=== PATIENT | female | born 1975 | race Caucasian/White ===

== ENCOUNTER 2023-11-25 23:19 | Emergency (ER) | payer OTHER, SELFPAY ==
[2023-11-25 23:20] VITALS: BP 130/75; BMI 24.8
--- NOTE | 2023-11-25 23:39 | ED.GENMED ---
History of Present Illness
General
Chief Complaint: Headache
Time Seen by Provider: 11/25/23 23:25
History of Present Illness
History of Present Illness:
Pt is a 48 y/o F presenting for evaluation of left-sided temporal CAST. She notes that she first became symptomatic while on the second of two flights earlier today. EMS was called while pt was at a [employer]. She endorses associated photophobia,
dizziness, and slurring of speech during this time. Speech is now normal. She denies difficulty ambulating as well as extremity numbness/tingling. Pt has not taken any medication for her sx. Of note, pt has a PMH of migraines and brain aneurysm.
GOLDY Smith
Past History
Past History
ED Past Medical History: Asthma, HTN, Hypercholesterolemia, Psychiatric (Anxiety), Other (Eclampsia, left internal carotid artery aneurysm, brain aneurysm) and Other (Chronic pain syndrome, narcotic dependent, chronic daily headaches)
ED Past Surgical History: Gynecological and Other (Aneurysm coiling)
Social History
Tobacco: Smoker
Alcohol: None
Drug: None
Personal: Single
Living: with family
Employment: Disabled
Family History
Family History: Asthma; Negative Early CAD
Review of Systems
Review of Systems
Constitutional: Reports no symptoms
EENT: Reports no symptoms
Respiratory: Reports no symptoms
Cardiac: Reports no symptoms
ABD/GI: Reports no symptoms
: Reports no symptoms
Musculoskeletal: Reports no symptoms
Skin: Reports no symptoms
Neurological: Reports dizzy and headache
Endocrine: Reports no symptoms
Hematologic/Lymphatic: Reports no symptoms
Psychiatric: Reports no symptoms
Phy Exam
General Physical Exam
General Presentation: well appearing
General age: appears stated age
General Skin: warm
General Habitus: normal
General Mental: alert
General Hydration: appears well hydrated
Eye Exam
Eye Exam: PERRL
Cardiovascular Exam
Cardiovascular Exam: regular rate/rhythm, no edema and no murmur
Pulmonary Exam
Pulmonary Exam: lungs clear and no respiratory distress
Neurological Exam
Neurological Exam: alert, oriented x3, no motor deficits, normal reflexs and speech normal
Course
Orders/Labs/Results
Orders:
Orders
11/25/23 23:38
Cardiac Monitoring- Treatment ONCE
0.9% Sodium Chloride 500 ml [Nss] 500 ml IV BOLUS
11/25/23 23:39
Electrocardiogram (*1) Stat
Reason for Study: Other
Other Reason for Exam: neuro symptoms
EKG- Treatment ONCE
11/25/23 23:42
Test Result ONCE
11/25/23 23:53
Complete Blood Count/With Diff Urgent
Comprehensive Metabolic Panel Urgent
Erythrocyte Sed Rate Urgent
HCG, Serum Qualitative Screen Urgent
PTT Urgent
Prothrombin Time Urgent
11/26/23 00:15
CT Head & Neck Angio W/wo IV Urgent
Reason For Exam: Hx of aneurysm returns with same sx
11/26/23 01:16
Dexamethasone Sod Phosphate [Decadron] 10 mg IV NOW STA
Diphenhydramine [Benadryl] 25 mg IV NOW STA
Ketorolac [Toradol] 30 mg IV NOW STA
Metoclopramide [Reglan] 10 mg IV NOW STA
11/26/23 01:17
0.9% Sodium Chloride 1000 ml [Nss] 1,000 ml IV BOLUS
Abnormal Lab Results
11/25/23
23:53
RBC 4.11 L 10^6/uL
(4.20-5.40)
Hct 35.2 L %
(37.0-47.0)
Absolute Neuts (auto) 8.7 H 10^3/uL
(1.4-6.5)
Neutrophils % 81.7 H %
(42.2-75.2)
Lymphocytes % 12.8 L %
(20.5-51.1)
ESR 21 H mm/hour
(0-20)
APTT 23.2 L Sec
(23.4-35.0)
Glucose 113 H mg/dl
(70-99)
AST 63 H U/L
(14-36)
ALT 120 H U/L
(0-35)
11/25/23 23:53
11/25/23 23:53
Vital Signs
Initial and Last Documented VS:
Initial Vital Signs
Temp Pulse Resp BP Pulse Ox
97.8 F 90 18 130/75 97
11/25/23 23:20 11/25/23 23:20 11/25/23 23:20 11/25/23 23:20 11/25/23 23:20
Last Documented Vital Signs
Temp Pulse Resp BP Pulse Ox
97.8 F 89 18 130/75 97
11/25/23 23:20 11/26/23 02:45 11/26/23 02:45 11/25/23 23:20 11/26/23 01:00
MDM/Problems Addressed
Differential Diagnosis Includes:
migraine, ruptured intracranial aneurysm, CVA, temporal arteritis.
MDM/Problems Addressed:
Head and neck CTA. No intracranial hemorrhage, herniation, or hydrocephalus noted.
*Critical Care Note
Total Time (30-74mins, 75-104mins- exclusive of procedures): Not Applicable
Update Note
Update Note:
IMPRESSION:
HEAD:
No intracranial hemorrhage, herniation, or hydrocephalus. Left parietal encephalomalacia. Aneurysm coil in region of the left carotid terminus.
No calvarial fracture.
CTA HEAD:
Streak artifact from aneurysm coil limits evaluation.
No large vessel occlusion or critical stenosis within the anterior or posterior circulation. Left vertebral artery terminates in PICA, normal variant. 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
CTA NECK:
No large vessel occlusion or critical stenosis within the anterior or posterior circulation.
Case finalized on Nov 26 2023 12:59AM ET
11/26/2023 0208 AM: Patient sleeping at this point. Vital signs are stable. Will continue to observe in the ER
\\
11/26/2023 0359 AM: Patient resting comfortably. She states she has absolutely no headache. Symptoms have resolved. Wishes to be discharged.
ED Attending Note
-
Portions of this chart may have been created with voice recognition software.� Occasional wrong word or��sound alike� substitutions may have occurred due to the inherent limitations of voice recognition software.
Discharge Plan
Departure
Patient Disposition: Home (Routine Discharge)
Date of Disposition: 11/26/23
Time of Disposition: 04:00
Patient with high blood pressure during this ER visit?: No
Condition: Good
Discharge Problem:
Headache
Instructions: Headache, Adult (DC), BLOOD PRESSURE
Prescriptions:
No Action
lorazepam 1 MG tablet
1 mg PO Q8HPRN PRN (Reason: anxiety) Qty: 15 0RF
Referrals:
Axel Malagon MD [Active] - Call in 1-3 days for appt
UNKNOWN - PT DOES,NOT KNOW [Unknown Provider] -
Activity Restrictions/Additional Instructions:
It was a pleasure meeting you and taking part in your care. We hope for your continued healing and wellness.
Please read discharge instructions in their entirety. However, they are for general education and may not describe your exact diagnosis at discharge. Information on your ER visit and medical conditions were discussed with you along with appropriate
follow up information...
If indicated, please take your medications as instructed and indicated on discharge paperwork.
Please schedule a follow up appointment as directed. Call to schedule an appointment
Please return to the emergency department with ANY change in, persisting, or worsening of symptoms. If any of your symptoms do not improve, or persist, or become more severe within 6-12 hours, please return to the emergency department for further
care.
Please return to the emergency department if you develop a headache, neck pain/stiffness, fever greater than 100.4F, chest pain, shortness of breath, persistent nausea, vomiting, slurred speech, difficulty walking, numbness/tingling, weakness, signs
of infection or any other symptoms that are worrisome to you.
If you have any questions or concerns please do not hesitate to call the Hospital at or E-mail me directly at [email or web address]
Interventions
Interventions:
*Risk Screen - Suicide Last Done: 11/25/23 23:20
*General Assessment Last Done: 11/25/23 23:20
*Neglect/Abuse Screening Last Done: 11/25/23 23:20
ED- Neurological Assessment Last Done: 11/25/23 23:32
Discharge Date and Time
Print Language: BENGALI
[2023-11-25 23:58] LABS: % Basophils 0.4 % (0-2); % Eosinophils 0.6 % (0-6); % Immature Granulocytes 0.3 % (0-0.5); % Lymphocytes 12.8 % (20.5-51.1); % Monocytes 4.2 % (1.7-9.3); % Neutrophils 81.7 % (42.2-75.2); Absolute Eosinophils 0.1 10^3/uL (0-0.7); Absolute Lymphocytes 1.4 10^3/uL (1.2-3.4); Absolute Monocytes 0.4 10^3/uL (0.1-0.6); Absolute Neutrophils 8.7 10^3/uL (1.4-6.5); Hematocrit 35.2 % (37.0-47.0); Hemoglobin 12.5 g/dL (12.0-16.0); Mean Corp Hgb Conc. 35.5 g/dL (33.0-37.0); Mean Corpuscular Hgb 30.4 pg (27.0-31.0); Mean Corpuscular Volume 85.6 fL (81.0-99.0); Mean Platelet Volume 9.1 fL (7.4-10.4); Nucleated Red Blood Cells % 0 %; Platelet Count 270 10^3/uL (130-400); Red Blood Cell Count 4.11 10^6/uL (4.20-5.40); Red Cell Dist. Width 12.8 % (11.5-14.5); White Blood Cell Count 10.6 10^3/uL (4.8-10.8)
[2023-11-26] MEDS: NSS 500 IV (00:03)
[2023-11-26 00:08] LABS: HCG, Serum Qualitative Screen Negative
[2023-11-26 00:18] LABS: APTT 23.2 Sec (23.4-35.0); INR 1.03; PT 13.3 Sec (11.4-14.6)
[2023-11-26 00:19] LABS: ALT (SGPT) 120 U/L (0-35); AST (SGOT) 63 U/L (14-36); Albumin 4.9 g/dl (3.5-5.0); Alkaline Phosphatase 107 U/L (38-126); Blood Urea Nitrogen 16 mg/dl (7-17); Carbon Dioxide 22 mmol/L (22-30); Chloride 106 mmol/L (98-107); Estimated Creatinine Clearance 101 ml/min; Glucose 113 mg/dl (70-99); Potassium 4.2 mmol/L (3.5-5.1); Sodium 139 mmol/L (135-145); Total Bilirubin 0.7 mg/dl (0.2-1.3); eGFR > 60.00
[2023-11-26 00:23] LABS: Erythrocyte Sed Rate 21 mm/hour (0-20)
[2023-11-26] MEDS: BENADRYL 25 MG IV (01:27)
[2023-11-26] MEDS: TORADOL 30 MG IV (01:29)
[2023-11-26] MEDS: REGLAN 10 MG IV (01:32)
[2023-11-26] MEDS: DECADRON 10 MG IV (01:34)
[2023-11-26] MEDS: NSS 1000 IV (03:03)
[2023-11-26 05:30] VITALS: BP 108/56
== END 2023-11-26 05:35 | disposition home or self-care (01) ==
LOC: EMR 23:19
PROVIDERS: EMERGENCY PHYSICIAN Student in an Organized Health Care Education/Training Program
DX: R51.9 Headache, unspecified (principal); R42 Dizziness and giddiness; H53.149 Visual discomfort, unspecified; R47.81 Slurred speech; F41.9 Anxiety disorder, unspecified; I10 Essential (primary) hypertension; E78.00 Pure hypercholesterolemia, unspecified; F17.200 Nicotine dependence, unspecified, uncomplicated; Z88.2 Allergy status to sulfonamides
CPT/HCPCS: 99285; 96374; 96375 ×3; 96361 ×2; 70496; 70498; 80053; 84703; 85025; 85610; 85652; 85730; 93005; Q9967

== ENCOUNTER 2024-10-14 02:42 | Emergency (ER) | payer OTHER, SELFPAY ==
[2024-10-14 02:50] VITALS: BMI 32.8
[2024-10-14 02:55] VITALS: BP 133/83
[2024-10-14 03:08] LABS: % Basophils 0.4 % (0-2); % Eosinophils 0.5 % (0-6); % Immature Granulocytes 0.3 % (0-0.5); % Lymphocytes 16.7 % (20.5-51.1); % Monocytes 8.2 % (1.7-9.3); % Neutrophils 73.9 % (42.2-75.2); Absolute Eosinophils 0.1 10^3/uL (0-0.7); Absolute Lymphocytes 1.8 10^3/uL (1.2-3.4); Absolute Monocytes 0.9 10^3/uL (0.1-0.6); Absolute Neutrophils 8.1 10^3/uL (1.4-6.5); Hematocrit 37.2 % (37.0-47.0); Hemoglobin 13.2 g/dL (12.0-16.0); Mean Corp Hgb Conc. 35.5 g/dL (33.0-37.0); Mean Corpuscular Hgb 30.5 pg (27.0-31.0); Mean Corpuscular Volume 85.9 fL (81.0-99.0); Nucleated Red Blood Cells % 0 %; Platelet Count 327 10^3/uL (130-400); Red Blood Cell Count 4.33 10^6/uL (4.20-5.40); Red Cell Dist. Width 11.9 % (11.5-14.5); White Blood Cell Count 10.9 10^3/uL (4.8-10.8)
[2024-10-14 03:13] LABS: Amphetamines Negative (Negative); Barbiturates Negative (Negative); Benzodiazepines Negative (Negative); Buprenorphine Negative (Negative); Cocaine Negative (Negative); HCG, Urine Qualitative Screen Negative; Methadone Negative (Negative); Methamphetamines Negative (Negative); Opiates Negative (Negative); Urine Albumin 1+ (Neg - Trace); Urine Bilirubin Negative (Negative); Urine Character Slightly Cloudy (Clear); Urine Color Amber; Urine Glucose Negative (Negative); Urine Ketone 1+ (Negative); Urine Leukocyte Negative (Negative); Urine Nitrite Negative (Negative); Urine Occult Blood Negative (Negative); Urine Urobilinogen Negative (Neg - 1+)
[2024-10-14 03:14] LABS: Marijuana Positive (Negative); Phencyclidine Negative (Negative); Tricyclic Antidepressants Negative (Negative)
[2024-10-14] MEDS: ATIVAN 1 MG IV (03:15)
[2024-10-14] MEDS: SAPHRIS 10 MG SL (03:15)
[2024-10-14] MEDS: ZOFRAN 4 MG IV (03:16)
[2024-10-14 03:24] LABS: Urine Squamous Cell >30 /LPF (Few)
[2024-10-14 03:26] LABS: Urine Bacteria Few (Negative)
[2024-10-14 03:27] LABS: Urine Red Blood Cell None Seen /HPF (0-2); Urine White Cell None Seen /HPF (0-5)
--- NOTE | 2024-10-14 03:30 | ED.GENMED ---
History of Present Illness
<DO Sammy Luke Last Filed: 10/14/24 06:17>
General
Chief Complaint: Psychiatric Problem
Source: patient and ambulance crew
Exam Limitations: clinical condition
Time Seen by Provider: 10/14/24 02:56
History of Present Illness
History of Present Illness:
49-year-old female who presents by medics. Medics state that 9 1 was called while she was at [employer] saying that she overdosed. EMS reports that upon arrival she had complained that she was just nauseous. Reportedly her spouse had filed a
missing persons report. The patient states she is homeless. Patient states that she has been having nausea and vomiting intermittently over a few days. The patient also states that she has missed some of her medications because they are at a
family member's house. The patient is intermittently screaming and agitated. History taking is somewhat limited due to patient's inconsistency with her history.
Past History
<DO Sammy Luke Last Filed: 10/14/24 06:17>
Past History
ED Past Medical History: Asthma, HTN, Hypercholesterolemia, Psychiatric (Anxiety), Other (Eclampsia, left internal carotid artery aneurysm, brain aneurysm) and Other (Chronic pain syndrome, narcotic dependent, chronic daily headaches)
ED Past Surgical History: Gynecological and Other (Aneurysm coiling)
Social History
Tobacco: Smoker
Alcohol: None
Drug: None
Personal: Single
Living: with family
Employment: Disabled
Family History
Family History: Asthma; Negative Early CAD
Phy Exam
<DO Sammy Luke Last Filed: 10/14/24 06:17>
Physical Exam
Physical Exam:
CONSTITUTIONAL Patient alert and oriented to person, place and time. Well-appearing. Vital signs reviewed.
HEAD atraumatic, normocephalic.
EYES eyelids normal to inspection, Extraocular muscles intact, Conjunctiva normal, Sclera normal.
NECK normal range of motion, Trachea midline, no jugular venous distention.
RESPIRATORY CHEST No respiratory distress noted, Chest expansion equal, Bilateral breath sounds clear.
CARDIOVASCULAR regular rate and rhythm, Heart sounds normal.
ABDOMEN abdomen nontender, Bowel sounds normal. No distention.
BACK normal inspection, no obvious deformities
UPPER EXTREMITY range of motion normal, Motor strength normal, no cyanosis, no edema.
LOWER EXTREMITY range of motion normal, Motor strength normal, no cyanosis, no edema.
NEURO Speech normal, No focal motor deficits, Julian coma scale 15, Memory normal, Cranial Nerves intact to screening exam.
Course
<Amadou Simon, - Last Filed: 10/14/24 06:17>
Orders/Labs/Results
Orders:
Orders
10/14/24 02:45
Test Result ONCE
10/14/24 02:47
HCG, Urine Qualitative Screen Urgent
Date Specimen was Collected: 10/14/24
Time Specimen was Collected: 02:45
Urinalysis Reflex To Culture Urgent
Date Specimen was Collected: 10/14/24
Time Specimen was Collected: 02:45
Urine Drug Abuse Screen Urgent
Date Specimen was Collected: 10/14/24
Time Specimen was Collected: 02:45
Urine Microscopic Reflex Cult Urgent
10/14/24 02:56
Lorazepam [Ativan] 1 mg IV NOW STA
Ondansetron Injectable [Zofran] 4 mg IV NOW STA
10/14/24 02:57
Electrocardiogram (*1) Stat
Reason for Study: Abdominal Pain
EKG- Treatment ONCE
10/14/24 02:58
Asenapine Sublingual [Saphris] 10 mg SL NOW STA
10/14/24 03:02
Alcohol Urgent
Complete Blood Count/With Diff Urgent
Comprehensive Metabolic Panel Urgent
10/14/24 03:20
Crisis Consult Urgent
Reason for Consult: agitation
10/14/24 03:22
Add On- LAB Urgent
Tests Added?: alcohol
Abnormal Lab Results
10/14/24 10/14/24
02:47 03:02
WBC 10.9 H 10^3/uL
(4.8-10.8)
Absolute Neuts (auto) 8.1 H 10^3/uL
(1.4-6.5)
Absolute Monos (auto) 0.9 H 10^3/uL
(0.1-0.6)
Lymphocytes % 16.7 L %
(20.5-51.1)
Glucose 126 H mg/dl
(70-99)
Calcium 10.3 H mg/dl
(8.4-10.2)
Total Protein 8.4 H g/dl
(6.3-8.2)
Urine Ketones 1+ A
(Negative)
Urine Bacteria (Reflex) Few A
(Negative)
Urine Albumin (Reflex) 1+ A
(Neg - Trace)
U Marijuana (THC) Screen Positive H
(Negative)
10/14/24 03:02
10/14/24 03:02
Vital Signs
Initial and Last Documented VS:
Initial Vital Signs
Pulse Ox
99
10/14/24 02:51
Last Documented Vital Signs
Temp Pulse Resp BP Pulse Ox
98.2 F 78 20 133/83 98
10/14/24 02:55 10/14/24 02:55 10/14/24 02:55 10/14/24 02:55 10/14/24 03:01
<Shane Ash MD - Last Filed: 10/14/24 10:00>
Orders/Labs/Results
Orders:
Orders
10/14/24 02:45
Test Result ONCE
10/14/24 02:47
HCG, Urine Qualitative Screen Urgent
Date Specimen was Collected: 10/14/24
Time Specimen was Collected: 02:45
Urinalysis Reflex To Culture Urgent
Date Specimen was Collected: 10/14/24
Time Specimen was Collected: 02:45
Urine Drug Abuse Screen Urgent
Date Specimen was Collected: 10/14/24
Time Specimen was Collected: 02:45
Urine Microscopic Reflex Cult Urgent
10/14/24 02:56
Lorazepam [Ativan] 1 mg IV NOW STA
Ondansetron Injectable [Zofran] 4 mg IV NOW STA
10/14/24 02:57
Electrocardiogram (*1) Stat
Reason for Study: Abdominal Pain
EKG- Treatment ONCE
10/14/24 02:58
Asenapine Sublingual [Saphris] 10 mg SL NOW STA
10/14/24 03:02
Alcohol Urgent
Complete Blood Count/With Diff Urgent
Comprehensive Metabolic Panel Urgent
10/14/24 03:20
Crisis Consult Urgent
Reason for Consult: agitation
10/14/24 03:22
Add On- LAB Urgent
Tests Added?: alcohol
Abnormal Lab Results
10/14/24 10/14/24
02:47 03:02
WBC 10.9 H 10^3/uL
(4.8-10.8)
Absolute Neuts (auto) 8.1 H 10^3/uL
(1.4-6.5)
Absolute Monos (auto) 0.9 H 10^3/uL
(0.1-0.6)
Lymphocytes % 16.7 L %
(20.5-51.1)
Glucose 126 H mg/dl
(70-99)
Calcium 10.3 H mg/dl
(8.4-10.2)
Total Protein 8.4 H g/dl
(6.3-8.2)
Urine Ketones 1+ A
(Negative)
Urine Bacteria (Reflex) Few A
(Negative)
Urine Albumin (Reflex) 1+ A
(Neg - Trace)
U Marijuana (THC) Screen Positive H
(Negative)
10/14/24 03:02
10/14/24 03:02
Vital Signs
Initial and Last Documented VS:
Initial Vital Signs
Pulse Ox
99
10/14/24 02:51
Last Documented Vital Signs
Temp Pulse Resp BP Pulse Ox
98.2 F 78 20 133/83 98
10/14/24 02:55 10/14/24 02:55 10/14/24 02:55 10/14/24 02:55 10/14/24 03:01
<DO Sammy Luke Last Filed: 10/14/24 06:17>
MDM/Problems Addressed
Differential Diagnosis Includes:
Anxiety, psychiatric disturbance, electrolyte balance
<DO Sammy Luke Last Filed: 10/14/24 06:17>
*Pulse Oximetry
Patient hypoxic: no
*EKG
Interpreted by ED Provider?: Yes
Interpretation: normal
Rate: normal
Rhythm: sinus
[place]: normal axis
Ischemia: no ischemia
*Typing Bookkeeper Interpretation
Rate: normal
Interpretation: normal
Rhythm: sinus
*Critical Care Note
Total Time (30-74mins, 75-104mins- exclusive of procedures): Not Applicable
Data Reviewed
Review of Other/Old Records Reveals: Progress Notes (Prior crisis notes reviewed from January 2022)
Source: patient and ambulance crew
<DO Sammy Luke Last Filed: 10/14/24 06:17>
Patient Management
Discussion with other providers: Other (Crisis)
Escalation/DeEscalation of care consider admission/obs:
Patient more calm after medications. Continue to monitor
06 15 patient is sleeping. Signed out to Dr. Lira pending reassessment. May need psychiatric evaluation if patient remains agitated
<Shane Ash MD - Last Filed: 10/14/24 10:00>
Update Note
Update Note:
Pt re-evaluated, alert and awake, after sleeping. Denies suicidal/homicidal ideation. Pt repeated refused to be evaluated by [facility]. Outpatient resources, i.e. housing, provided by case management prior to discharge. No indication for
302 petition at this time.
ED Attending Note
<Amadou Simon DO - Last Filed: 10/14/24 06:17>
-
Portions of this chart may have been created with voice recognition software.� Occasional wrong word or��sound alike� substitutions may have occurred due to the inherent limitations of voice recognition software.
Discharge Plan
Departure
Patient Disposition: Home (Routine Discharge)
Date of Disposition: 10/14/24
Time of Disposition: 04:33
Patient with high blood pressure during this ER visit?: Yes
Discharge Problem:
Schizophrenia
Instructions: Schizophrenia (DC)
Prescriptions:
No Action
lorazepam 1 MG tablet
1 mg PO Q8HPRN PRN (Reason: anxiety) Qty: 15 0RF
Referrals:
UNKNOWN - PT DOES,NOT KNOW [Family Provider] -
Activity Restrictions/Additional Instructions:
As discussed, please follow up with referred outpatient resources for further assistance
Interventions
Interventions:
*Risk Screen - Suicide Last Done: 10/14/24 02:55
*General Assessment Last Done: 10/14/24 02:55
*Neglect/Abuse Screening Last Done: 10/14/24 02:55
*ED- Fall Risk Assessment Last Done: 10/14/24 02:55
*ED COVID-19 Vaccine History Last Done: 10/14/24 02:55
ED-Psychological Assessment Last Done: 10/14/24 08:00
Discharge Date and Time
Print Language: OCCITAN
[2024-10-14 03:32] LABS: Urine Uric Acid Crystals Present
[2024-10-14 03:35] LABS: ALT (SGPT) 24 U/L (0-35); AST (SGOT) 27 U/L (14-36); Albumin 4.7 g/dl (3.5-5.0); Alcohol < 10 mg/dl; Alkaline Phosphatase 69 U/L (38-126); Blood Urea Nitrogen 12 mg/dl (7-17); Calcium 10.3 mg/dl (8.4-10.2); Carbon Dioxide 23 mmol/L (22-30); Chloride 106 mmol/L (98-107); Estimated Creatinine Clearance 119 ml/min; Glucose 126 mg/dl (70-99); Potassium 4.1 mmol/L (3.5-5.1); Sodium 139 mmol/L (135-145); Total Bilirubin 0.7 mg/dl (0.2-1.3); Total Protein 8.4 g/dl (6.3-8.2); eGFR > 60.00
--- NOTE | 2024-10-14 09:59 | CM ---
Patient seen at bedside in ED, Crisis #2. Patient stated that she would accept resource information and appeared to understand that [facility] would want to talk to her. CM provided phone number for [facility] to [phone]/Veronica
[phone]. Patient declined referrals to [facility] or Crisis at this time. CM also provided information to call [facility] [phone] and CM spoke with liaison at [facility] to confirm that patient was known to system but has not been
in touch since 2020. Patient will need to restart housing link application and system takes several months. Current housing/halfway wait list is several months long. Patient indicated that she would return to her [place] address and would call her
insurance to transport her home. CM updated physician and will continue to be available for discharge planning needs.
Plan; resources provided for housing/halfway options
--- NOTE | 2024-10-14 10:27 | EDRN ---
Reviewed discharge instructions with patient. Verbalized understanding. Patient calling her insurance company for a ride to [place]. Patient continues to be easily agitated when spoken to. 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
--- NOTE | 2024-10-14 10:29 | EDRN ---
Patient continues to refuse to have vital signs taken. Patient stated 'Leave me the fuck alone. I am fine.'
== END 2024-10-14 10:45 | disposition home or self-care (01) ==
LOC: EMR 02:42
PROVIDERS: EMERGENCY PHYSICIAN Emergency Medicine
DX: F20.9 Schizophrenia, unspecified (principal); R11.2 Nausea with vomiting, unspecified; E78.00 Pure hypercholesterolemia, unspecified; I10 Essential (primary) hypertension; J45.909 Unspecified asthma, uncomplicated; G89.4 Chronic pain syndrome; F17.200 Nicotine dependence, unspecified, uncomplicated; Z59.00 Homelessness unspecified
CPT/HCPCS: 96374; 96375; 99284; 80053; 80306; 81003; 81015; 81025; 82077; 85025; 93005

== ENCOUNTER 2024-12-16 22:04 | Emergency (ER) | payer OTHER, SELFPAY ==
[2024-12-16 22:06] VITALS: BP 119/72
--- NOTE | 2024-12-16 23:20 | ED.GENMED ---
History of Present Illness
General
Chief Complaint: Psychiatric Problem
Source: patient
Exam Limitations: none
Time Seen by Provider: 12/16/24 22:23
Nursing documentation reviewed up to this point in time: agreed with
History of Present Illness
History of Present Illness:
Patient to eD via EMS for crisis evaluation. According to report, patient arrived at a residence where she is not welcomed. She currently has no complaints. Denies SI,HI. Awake alert and oriented, cooperative
Past History
Past History
ED Past Medical History: Asthma, HTN, Hypercholesterolemia, Psychiatric (Anxiety), Other (Eclampsia, left internal carotid artery aneurysm, brain aneurysm) and Other (Chronic pain syndrome, narcotic dependent, chronic daily headaches)
ED Past Surgical History: Gynecological and Other (Aneurysm coiling)
Social History
Tobacco: Smoker
Alcohol: None
Drug: None
Personal: Single
Living: with family
Employment: Disabled
Family History
Family History: Asthma; Negative Early CAD
Review of Systems
Review of Systems
Allergies reviewed?: Yes
All Other Systems: ROS reviewed and negative except as documented in HPI and ROS
Constitutional: Reports no symptoms
EENT: Reports no symptoms
Respiratory: Reports no symptoms
Cardiac: Reports no symptoms
Musculoskeletal: Reports no symptoms
Skin: Reports no symptoms
Neurological: Reports no symptoms
Psychiatric: Reports no symptoms
Phy Exam
General Physical Exam
General Presentation: well appearing and no apparent distress
General age: appears stated age
General Skin: warm and dry
General Habitus: normal
Neurological Exam
Neurological Exam: alert, oriented x3, no motor deficits, no sensory deficits and normal gait
Musculoskeletal Exam
Musculoskeletal Exam: full ROM
Skin Exam
Skin Exam: normal color, warm/dry and no rash
Psychiatric Exam
Psychiatric Exam: normal mood/affect
Course
Orders/Labs/Results
Orders:
Orders
12/16/24 22:11
1:1 Observation - Suicide/ Violent Behavior As Directed
Crisis Consult Urgent
Reason for Consult: manic
Vital Signs
Initial and Last Documented VS:
Initial Vital Signs
Temp Pulse Resp BP Pulse Ox
98.5 F 96 16 119/72 98
12/16/24 22:06 12/16/24 22:06 12/16/24 22:06 12/16/24 22:06 12/16/24 22:06
Last Documented Vital Signs
Temp Pulse Resp BP Pulse Ox
98.5 F 96 16 119/72 98
12/16/24 22:06 12/16/24 22:06 12/16/24 22:06 12/16/24 22:06 12/16/24 23:22
*Pulse Oximetry
SaO2: 98
Oxygen Mode of Delivery: Room air
Update Note
Update Note:
Patient to ED by EMS for crisis evaluation, She was seen by crisis and cleared for discharge. She denies SI, HI. SHe is cooperative. Patient does not have a place to go to, no transportation available to her. Crisis attempting to find detention.
ED Attending Note
-
Portions of this chart may have been created with voice recognition software.� Occasional wrong word or��sound alike� substitutions may have occurred due to the inherent limitations of voice recognition software.
Discharge Plan
Departure
Patient Disposition: Home (Routine Discharge)
Date of Disposition: 12/17/24
Time of Disposition: 00:05
Patient with high blood pressure during this ER visit?: No
Condition: Good
Covid-19: Not Applicable
Discharge Problem:
Crisis consult
Instructions: General
Prescriptions:
No Action
lorazepam 1 MG tablet
1 mg PO Q8HPRN PRN (Reason: anxiety) Qty: 15 0RF
Referrals:
UNKNOWN - PT DOES,NOT KNOW [Family Provider]
Interventions
Interventions:
*Risk Screen - Suicide Last Done: 12/16/24 22:06
*Neglect/Abuse Screening Last Done: 12/16/24 22:06
*ED- Fall Risk Assessment Last Done: 12/16/24 22:06
*Nursing Disposition Last Done: 12/17/24 00:24
ED-Psychological Assessment Last Done: 12/17/24 00:23
Discharge Date and Time
Discharge Date/Time: 12/17/24 00:25
Print Language: ROMANSH
== END 2024-12-17 00:25 | disposition home or self-care (01) ==
LOC: EMR 22:04
PROVIDERS: EMERGENCY PHYSICIAN Emergency Medicine
DX: Z13.30 Encounter for screening examination for mental health and behavioral disorders, unspecified (principal); J45.909 Unspecified asthma, uncomplicated; I10 Essential (primary) hypertension; E78.00 Pure hypercholesterolemia, unspecified; F17.200 Nicotine dependence, unspecified, uncomplicated; F41.9 Anxiety disorder, unspecified; Z87.59 Personal history of other complications of pregnancy, childbirth and the puerperium
CPT/HCPCS: 99282